=== PATIENT | female | born 1955 ===

== ENCOUNTER → 2025-01-08 | Outpatient (CLI) | payer MEDICARE ==
[2025-01-09 15:53] LABS: Free Thyroxine 1.21 ng/dL (0.70-1.60); Thyroid Stimulating Hormone 0.637 uIU/mL (0.360-4.800)
== END ==
LOC: LAB 17:18 → LAB SHORT 17:18
PROVIDERS: Internal Medicine
DX: R79.89 Other specified abnormal findings of blood chemistry (principal); Z79.899 Other long term (current) drug therapy
CPT/HCPCS: 84439; 84443; 84481